=== PATIENT | male | born 1995 | race Hispanic/Latino ===

== ENCOUNTER 2016-12-19 14:35 | Emergency (ER) | payer OTHER, BC ==
[2016-12-19] MEDS ORDERED: NORCO 5/325 PO ONE (19:43)
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
[2016-12-19 21:21] VITALS: BP 113/79
== END 2016-12-19 21:40 | disposition home or self-care (01) ==
LOC: ED 14:35
DX: S16.1XXA Strain of muscle, fascia and tendon at neck level, initial encounter (principal); M54.6 Pain in thoracic spine; F17.200 Nicotine dependence, unspecified, uncomplicated; V49.49XA Driver injured in collision with other motor vehicles in traffic accident, initial encounter; Y93.9 Activity, unspecified; Y92.9 Unspecified place or not applicable; Y99.9 Unspecified external cause status
CPT/HCPCS: 72070; 72125; 99284